=== PATIENT | female | born 1970 | race Caucasian/White ===

== ENCOUNTER 2021-04-13 23:21 | Emergency (ER) | payer MEDICAID ==
[~2021-04-13] VITALS: Ht 157.5 cm; Wt 72.1 kg
[2021-04-13 23:34] VITALS: BP 144/94
[2021-04-13] MEDS ORDERED: KETOROLAC TROMETHAMINE INJ 30 MG/ML VIAL ONE (23:50)
[2021-04-13] MEDS ORDERED: SUMATRIPTAN SUCCINATE 6 MG/0.5 ML VIAL SQ ONE (23:50)
[2021-04-13] MEDS ORDERED: METOCLOPRAMIDE HCL 10 MG/2 ML VIAL ONE (23:50)
[2021-04-14] MEDS ORDERED: SUMATRIPTAN SUCCINATE 6 MG/0.5 ML VIAL SQ ONE
[2021-04-14] MEDS ORDERED: KETOROLAC TROMETHAMINE INJ 30 MG/ML VIAL IV ONE
[2021-04-14] MEDS ORDERED: IV NS 0.9% 1,000 ML BAG IV ONE
[2021-04-14] MEDS ORDERED: METOCLOPRAMIDE HCL 10 MG/2 ML VIAL IV ONE
[2021-04-14] MEDS ORDERED: METO10TA3 PO (01:12)
[2021-04-14] MEDS ORDERED: SUMA100T16 PO (01:12)
[2021-04-14] MEDS ORDERED: IBUP-1957 PO (01:12)
== END 2021-04-14 01:44 | disposition home or self-care (01) ==
LOC: ER 23:21
DX: G43.909 Migraine, unspecified, not intractable, without status migrainosus (principal); Z79.899 Other long term (current) drug therapy
CPT/HCPCS: 96361; 96372; 96374; 96375; 99284; J1885; J2765; J3030; J7030 ×2